=== PATIENT | male | born 1970 | race Caucasian/White ===

== ENCOUNTER 2020-01-29 15:33 | Emergency (ER) | payer MEDICAID ==
[~2020-01-29] VITALS: Ht 167.6 cm; Wt 87.1 kg
[2020-01-29 15:50] VITALS: Ht 167.6 cm; Wt 87.1 kg
[2020-01-29 17:19] VITALS: BP 155/65
== END 2020-01-29 17:19 | disposition home or self-care (01) ==
LOC: ED 15:33
DX: R06.00 Dyspnea, unspecified (principal); E11.9 Type 2 diabetes mellitus without complications; Z20.828 Contact with and (suspected) exposure to other viral communicable diseases
CPT/HCPCS: Q0092; U0003-CS